=== PATIENT | female | born 1970 | race African-American/Black ===

== ENCOUNTER 2016-05-08 14:17 | Emergency (ER) ==
[2016-05-08 14:32] VITALS: BP 167/102
--- NOTE | 2016-05-08 15:15 | PROVIDER DOCUMENTATION ---
HPI-General Adult - General Chief Complaint: Flu Symptoms Stated Complaint: FLU LIKE SX Time Seen by Provider: 05/08/16 15:15 Source: patient Allergies/Adverse Reactions: Patient Allergies Allergy/AdvReac Type Severity Reaction Status Date / Time No Known Allergies Allergy Verified 11/16/15 15:39 Home Medications: Home Medication List Medication Instructions Recorded Confirmed Last Taken Type Acyclovir 800 mg PO 5XDAY #35 tablet 05/08/16 Unknown Rx Diclofenac Sodium 75 mg PO BID PRN #14 tablet. 05/08/16 Unknown Rx Lidocaine 5% Oint [Xylocaine 5% 1 applicatn TOP TID PRN #1 tube 05/08/16 Unknown Rx Oint] - History of Present Illness -Gen Adult Nature of Presenting Problems: PATIENT REPORTS ONSET OF CHILLS, NAUSEA, FLANK PAIN YESTERDAY. WOKE THIS MORNING WITH PAINFUL RASH TO CHIN. Location of Pain/Injury: reports: face, back Pain Radiation: reports: no radiation Quality of Pain: reports: burning, sharp Severity: reports: moderate Onset/Duration: reports: other (BACK PAIN YESTERDAY, FACIAL PAIN TODAY) Timing: reports: still present Context/Activities at Onset: reports: none Modifying Factors: improves with: palpation Associated Symptoms: reports: nausea Similar Symptoms Previously?: No Recently seen or treated by another doctor?: No Review of Systems - Adult - REVIEW OF SYSTEMS - ADULT Constitutional: reports: see HPI Eyes: reports: no symptoms reported Ears, Nose, Mouth & Throat: reports: no symptoms reported Cardiovascular: reports: no symptoms reported Respiratory: reports: no symptoms reported Gastrointestinal: reports: no symptoms reported, see HPI Genitourinary: reports: see HPI, frequency Musculoskeletal: reports: see HPI Integumentary: reports: see HPI Neurological: reports: no symptoms reported Psychiatric: reports: no symptoms reported Endocrine: reports: no symptoms reported Hematologic/Lymphatic: reports: no symptoms reported Allergic/Immunologic: reports: no symptoms reported Past History - Adult - PAST MEDICAL HISTORY-ADULT Review of Records: reports: Nursing Assessment Review, Medications Reviewed, Social history reviewed & non-contributory. Major Childhood Illnesses: reports: denies history Cardiovascular: reports: denies history Respiratory: reports: denies history Gastrointestinal: reports: denies history Obstetrical/Gynecological: reports: denies history Genitourinary: reports: denies history Musculoskeletal: reports: denies history Neurological: reports: denies history Psychiatric: reports: denies history Endocrine/Immune: reports: denies history Other Conditions: reports: denies history - PRIOR SURGERIES/PROCEDURES Surgical/Procedure History: reports: hysterectomy - PRIOR HOSPITALIZATIONS Prior Hospitalizations: reports: none - IMMUNIZATION STATUS Childhood Immunizations: See Nurse Assessment Flu Vaccine: See Nurse Assessment - FAMILY HISTORY Family History: reviewed, not pertinent Physical Exam-General - PHYSICAL EXAM-ADULT Initial Vital Signs Reviewed: Yes - CONSTITUTIONAL General Appearance: appears well, alert, no apparent distress - EYES Eyes: PERRL/EOMI - HEAD, EARS, NOSE, MOUTH & THROAT HENMT: normal ENT inspection - NECK Neck: non-tender - RESPIRATORY Respiratory: lungs clear, normal breath sounds - CARDIOVASCULAR Cardiovascular: regular rate, rhythm - GASTROINTESTINAL (ABDOMEN) Abdominal Exam: normal bowel sounds, non tender, soft - LYMPHATIC Lymphatic: no adenopathy - MUSCULOSKELETAL Back Exam: no CVA tenderness, other (PARASPINOUS TENDERNESS RIGHT LUMBAR) Extremity: normal range of motion - SKIN Integumentary: normal color, normal turgor, warm/dry, zoster-like rash (LEFT SIDE CHIN) - NEUROLOGIC Neurologic: grossly normal, no motor/sensory deficits - PSYCHIATRIC Psych/Mental Status: normal mood/affect, normal thought content, normal thought process, oriented x 3 Progress - PLAN OF CARE/RESULTS Progress/Plan/Lab Results: Laboratory Tests 05/08/16 05/08/16 05/08/16 15:40 Unknown Unknown Urine Source Cancelled CLEAN CATCH Urine Color Cancelled YELLOW Urine Clarity CLEAR Urine Turbidity Cancelled Urine pH Cancelled 7.0 Ur Specific [place] Cancelled 1.005 Urine Protein Cancelled NEGATIVE Ur Glucose (Stick) Cancelled Urine Ketones NEGATIVE Ur Ketones (Stick) Cancelled Urine Blood Cancelled NEGATIVE Urine Nitrite Cancelled NEGATIVE Urine Bilirubin Cancelled NEGATIVE Urine Urobilinogen NORMAL Urobilinogen Dipstick Cancelled Urine Leukocytes Cancelled Urine WBC (Auto) Cancelled Urine RBC (Auto) Cancelled U Epithel Cells (Auto) Cancelled Urine Bacteria (Auto) Cancelled Urine Microscopic RBC Not Reportable Urine WBC NEGATIVE Ur Epithelial Cells <10 Urine Glucose NEGATIVE Influenza A (Rapid) NEGATIVE Influenza B (Rapid) NEGATIVE Orders Category Date Time Status Flu [INFLUENZA SCREEN PL] Stat Lab 05/08/[address] W/POSS RFLX CULT [URINALYSIS] Routine Lab 05/08/16 Completed Ketorolac [Toradol] Med 05/08/16 16:51 Discontinued 60 mg IM NOW ONE Vital Signs - 24 hr 05/08/16 14:28 Temperature 98.3 F Pulse Rate 90 Respiratory 18 Rate Blood Pressure 167/102 O2 Sat by Pulse 98 Oximetry Departure - Departure Time of Disposition Order: 16:51 DIAGNOSIS: Lumbar back pain Qualifiers: Chronicity: acute Back pain laterality: right Sciatica presence: without sciatica Qualified Code(s): M54.5 - Low back pain Shingles rash Qualifiers: Herpes zoster complications: without complications Qualified Code(s): B02.9 - Zoster without complications Disposition: HOME 01 Certified Medical Emergency: Emergent Condition: Good Additional Instructions: ED Follow Up Instructions: You have been treated by a care provider in the Emergency Department. These instructions are being provided to you so you can have an understanding of how to care for yourself upon discharge. Upon discharge from the Emergency Department, you are responsible for making arrangements for follow-up care by a physician of your choice. Take all prescribed medications as directed. Return to the Emergency Department immediately for any new or worsening symptoms. You may call the Physician Referral phone number at [phone] to obtain a list of Physicians who are taking new patients. Prescriptions: Acyclovir 800 mg PO 5XDAY #35 tablet Diclofenac Sodium 75 mg PO BID PRN #14 tablet. PRN Reason: Pain Lidocaine 5% Oint [Xylocaine 5% Oint] 1 applicatn TOP TID PRN #1 tube PRN Reason: Pain Referrals: Jenny Chamberlain MD [Primary Care Provider] - Forms: Return to School/Parent Work Instructions: Shingles, [id number], Back Pain, Adult, [id number], Lidocaine skin cream or ointment, Diclofenac sodium extended-release tablets, Acyclovir tablets or capsules Attestation - Physician/ AMY Attestation Patient care was provided by Advanced Practice Provider:: Yes Advanced Practice Provider:: Jalen Cid Advanced Practice Provider documentation review:: The Mid-level provider documentation, treatment plan and medical decision making was reviewed by the physician who agrees with all treatment and medical decision making by the MLP.
[2016-05-08 16:30] LABS: URINE CULTURE PL NEEDED? NO; URINE SOURCE CLEAN CATCH
[2016-05-08 16:33] LABS: BILIRUBIN URINE NEGATIVE (NEGATIVE); BLOOD URINE NEGATIVE (NEGATIVE); CLARITY CLEAR (CLEAR); COLOR YELLOW; GLUCOSE URINE NEGATIVE (NEGATIVE); LEUKOCYTES URINE NEGATIVE (NEGATIVE); NITRITE URINE NEGATIVE (NEGATIVE); PROTEIN URINE NEGATIVE (NEGATIVE); SP GRAVITY URINE 1.005; URINE EPITHELIAL CELLS <10 /HPF (<10); UROBILINOGEN URINE NORMAL
[2016-05-08] MEDS ORDERED: TORADOL IM ONE (16:51)
== END 2016-05-08 17:23 | disposition home or self-care (01) ==
LOC: P.ED 14:17
DX: B02.9 Zoster without complications (principal); M54.5 Low back pain; R10.9 Unspecified abdominal pain; R68.83 Chills (without fever); R11.0 Nausea; R21 Rash and other nonspecific skin eruption; R51 Headache; R35.0 Frequency of micturition
CPT/HCPCS: 81001; 87804; J1885